=== PATIENT | male | born 2000 | race Caucasian/White ===

== ENCOUNTER 2022-04-19 16:37 | Emergency (ER) | payer SELFPAY ==
[~2022-04-19] VITALS: Wt 113.6 kg
[2022-04-19 18:07] VITALS: BP 167/78; PULSE 127
== END 2022-04-19 17:50 | disposition short-term general hospital (02) ==
LOC: COL.ER 16:37
DX: S82.001B Unspecified fracture of right patella, initial encounter for open fracture type I or II (principal); S00.01XA Abrasion of scalp, initial encounter; R56.9 Unspecified convulsions; R40.2432 Glasgow coma scale score 3-8, at arrival to emergency department; Z28.310 Unvaccinated for COVID-19; Z23 Encounter for immunization; V29.40XA Motorcycle driver injured in collision with unspecified motor vehicles in traffic accident, initial encounter; Y92.410 Unspecified street and highway as the place of occurrence of the external cause; Y93.55 Activity, bike riding
CPT/HCPCS: J0330; J1953; J2250; J3010

== ENCOUNTER 2022-05-21 08:00 | Outpatient (RCR) | payer BC | END 2022-06-01 | disposition home or self-care (01) | LOC: WSPT | DX: S82.041D Displaced comminuted fracture of right patella, subsequent encounter for closed fracture with routine healing (principal); S93.12 Dislocation of metatarsophalangeal joint; X58.XXXD Exposure to other specified factors, subsequent encounter ==